=== PATIENT | female | born 1990 | race Caucasian/White ===

== ENCOUNTER 2016-05-09 09:14 | Emergency (ER) ==
[2016-05-09 09:26] VITALS: BP 139/92; TEMP 98.5; BMI 35.0
--- NOTE | 2016-05-09 09:54 | ED.PDOC ---
General ED Provider: Dr. LOULOU BRAUN Chief Complaint: Toe Pain/Injury Stated Complaint: ingrown toe nail right foot Time Seen by Physician: 09:18 Mode of Arrival: Walk-In Information Source: Patient Exam Limitations: No limitations Primary Care Provider: AYDE GARAY Nursing and Triage Documentation Reviewed and Agree: Yes Musculoskeletal Complaint Exam - Ankle/Foot Complaint/Exam Location of Injury: Reports: Right, Toe #1 Mechanism of Injury: Reports: Other (in grown toe nail1 monthago she did not keep wound clean kept dressing onx2 weeks) Onset/Duration: 30 days Symptoms Are: Reports: Still present Initial Severity: Moderate Current Severity: Moderate Character: Reports: Dull, Aching Alleviating: Reports: Rest Aggravating: Reports: Movement Able to Bear Weight: Yes Associated Signs and Symptoms: Reports: Redness (see photos) Review of Systems - Review Of Systems Constitutional: Reports: No symptoms Eyes: Reports: No symptoms Ears, Nose, Mouth, Throat: Reports: No symptoms Respiratory: Reports: No symptoms Cardiac: Reports: No symptoms GI: Reports: No symptoms : Reports: No symptoms Musculoskeletal: Reports: Other (1st toe pain) Skin: Reports: No symptoms Neurological: Reports: No symptoms Endocrine: Reports: No symptoms Hematologic/Lymphatic: Reports: No symptoms All Other Systems: Reviewed and Negative Past Medical History - Past Medical History Endocrine: Reports: None Cardiovascular: Reports: None Respiratory: Reports: None Hematological: Reports: None Gastrointestinal: Reports: None Genitourinary: Reports: None Neuro/Psych: Reports: None Musculoskeletal: Reports: Back Pain Cancer: Reports: None Last Menstrual Period: 1 week Other Pertinent Past Medical History: Dental pain, hiatal hernia - Surgical History General Surgical History: Reports: Other (dental) - Family History Family History: Reports: Unknown - Social History Smoking Status: Current every day smoker, Light tobacco smoker Hx Substance Use: No Alcohol Screening: None Physical Exam - Physical Exam Appearance: Well-appearing, No pain distress, Well-nourished Eyes: SHALONDA, EOMI, Conjunctiva clear ENT: Ears normal, Nose normal, Oropharynx normal Respiratory: Airway patent, Breath sounds clear, Breath sounds equal, Respirations nonlabored Cardiovascular: RRR, Pulses normal, No rub, No murmur GI/: Soft, Nontender, No masses, Bowel sounds normal, No Organomegaly Musculoskeletal: Limited ROM (right 1st toe red inflammed and scaly see photo) Skin: Warm, Dry, Normal color Neurological: Sensation intact, Motor intact, Reflexes intact, Cranial nerves intact, Alert, Oriented Psychiatric: Affect appropriate, Mood appropriate Critical Care Note - Critical Care Note Total Time (mins): 0 Course - Course Vital Signs: Temp Pulse Resp BP Pulse Ox 05/09/16 09:16 98.5 F 82 20 139/92 H 95 Departure - Departure Time of Disposition: 09:54 Disposition: HOME SELF-CARE Discharge Problem: Pain in toe Instructions: Ingrown Nail (ED), Paronychia (ED) Condition: Good Pt referred to PMD for follow-up: No Allergies/Adverse Reactions: Allergies ketorolac tromethamine [From Toradol] Adverse Reaction (Verified 05/09/16 09:26) Penicillins Adverse Reaction (Verified 05/09/16 09:26) tramadol Adverse Reaction (Verified 05/09/16 09:26) Home Medications: Ambulatory Orders Alprazolam [Xanax] 1 mg PO QID 05/09/16 Ranitidine HCl [Acid Meat Cutter Apprentice] 150 mg PO DAILY 05/09/16
== END 2016-05-09 10:08 | disposition home or self-care (01) ==
LOC: ED 09:14
DX: L60.0 Ingrowing nail (principal); L03.031 Cellulitis of right toe; M79.674 Pain in right toe(s); F17.210 Nicotine dependence, cigarettes, uncomplicated
CPT/HCPCS: 99282

== ENCOUNTER 2016-09-26 22:49 | Emergency (ER) ==
[2016-09-26 22:53] VITALS: BP 138/91; TEMP 98.6; BMI 34.6
--- NOTE | 2016-09-27 00:06 | ED.PDOC ---
General ED Provider: Dr. DONTAE CARRILLO-ER Chief Complaint: Extremity Pain/Injury Stated Complaint: a door hit my elbow 2 nights ago and it still hurts Time Seen by Physician: 22:50 Mode of Arrival: Walk-In Information Source: Patient Exam Limitations: No limitations Primary Care Provider: AYDE GARAY Nursing and Triage Documentation Reviewed and Agree: Yes Musculoskeletal Complaint Exam - Elbow Pain Complaint/Exam Mechanism of Injury: Reports: Trauma Onset/Duration: 2 days Symptoms Are: Still present Onset of Pain: Reports: Immediate Initial Severity: Mild Current Severity: Moderate Location: Reports: Discrete (right elbow) Character: Reports: Dull, Aching Alleviating: Reports: None Aggravating: Reports: Movement, Twisting, Pulling Associated Signs and Symptoms: Reports: Swelling, Bruising. Denies: Redness, Fever, Weakness, Numbness, Tingling Related History: Reports: Similar episode Related Surgical History: Reports: None Elbow Findings: Present: Swelling, Ecchymosis Tenderness: Present: Medial Condyle Limited Range of Motion: Present: Flexion, Extension, Pronation, Supination Differential Diagnoses: Closed Fracture, Sprain, Strain Review of Systems - Review Of Systems Constitutional: Reports: No symptoms Eyes: Reports: No symptoms Ears, Nose, Mouth, Throat: Reports: No symptoms Respiratory: Reports: No symptoms Cardiac: Reports: No symptoms GI: Reports: No symptoms : Reports: No symptoms Musculoskeletal: Reports: Muscle pain Skin: Reports: No symptoms Neurological: Reports: No symptoms Endocrine: Reports: No symptoms Hematologic/Lymphatic: Reports: No symptoms All Other Systems: Reviewed and Negative Past Medical History - Past Medical History Previously Healthy: Yes Endocrine: Reports: None Cardiovascular: Reports: None Respiratory: Reports: None Hematological: Reports: None Gastrointestinal: Reports: None Genitourinary: Reports: None Neuro/Psych: Reports: None Musculoskeletal: Reports: Back Pain Cancer: Reports: None Last Menstrual Period: 09/15/16 Other Pertinent Past Medical History: Dental pain, hiatal hernia - Surgical History General Surgical History: Reports: Other (dental) - Family History Family History: Reports: Unknown - Social History Smoking Status: Current every day smoker, Light tobacco smoker Hx Substance Use: No Alcohol Screening: None Lives: With family - Immunizations Tetanus Shot up to Date: Yes Physical Exam - Physical Exam Appearance: Well-appearing, No pain distress, Well-nourished Pain Distress: Moderate Eyes: SHALONDA, EOMI, Conjunctiva clear ENT: Ears normal, Nose normal, Oropharynx normal Neck: Supple Respiratory: Airway patent, Breath sounds clear, Breath sounds equal, Respirations nonlabored Cardiovascular: RRR, Pulses normal, No rub, No murmur GI/: Soft, Nontender, No masses, Bowel sounds normal, No Organomegaly Musculoskeletal: Limited ROM Skin: Warm, Dry, Normal color Neurological: Sensation intact, Motor intact, Reflexes intact, Cranial nerves intact, Alert, Oriented Psychiatric: Affect appropriate, Mood appropriate Interpretation - Radiology Interpretation Radiology Interpretation By: Radiologist Radiology Results: Negative Critical Care Note - Critical Care Note Total Time (mins): 0 Course - Course Orders, Labs, Meds: Orders Category Date Time Status Splint [ED SPLINT APPLICATION] .ONCE EMERGENCY 09/27/16 00:10 Active Hydrocodone Bit/Acetaminophen [Urania 7.5-325] MEDS 09/27/16 00:06 Discontinued 1 tab PO ONCE STA ELBOW, RIGHT MIN 3 VIEWS Stat RADS 09/26/16 23:39 Completed FOREARM, RIGHT 2 VIEWS Stat RADS 09/26/16 23:39 Completed Medications Discontinued Medications Generic Name Dose Route Start Last Admin Trade Name Freq PRN Reason Stop Dose Admin Acetaminophen/Hydrocodone Bitart 1 tab 09/27/16 00:06 Urania 7.5-325 PO 09/27/16 00:07 ONCE STA Vital Signs: Temp Pulse Resp BP Pulse Ox 09/26/16 22:49 98.6 F 96 H 20 138/91 H 96 Departure - Departure Time of Disposition: 00:11 Disposition: HOME SELF-CARE Discharge Problem: Contusion, elbow Qualifiers: Encounter type: initial encounter Laterality: right Qualifier Code: (S50.01XA) Contusion of right elbow, initial encounter Instructions: Contusion in Adults (ED) Condition: Good Pt referred to PMD for follow-up: Yes Additional Instructions: stay in sling--norco 7.5mg q 4hrs prn #10--f/u with pcp next week--consider mri of the elbow Allergies/Adverse Reactions: Allergies ketorolac tromethamine [From Toradol] Adverse Reaction (Verified 05/09/16 09:26) Penicillins Adverse Reaction (Verified 05/09/16 09:26) tramadol Adverse Reaction (Verified 05/09/16 09:26) Home Medications: Ambulatory Orders Alprazolam [Xanax] 1 mg PO QID 05/09/16 Ranitidine HCl [Acid Boardmarker] 150 mg PO DAILY 05/09/16 Disposition Discussed With: Patient
--- NOTE | 2016-09-27 00:06 | DI ---
EXAM: Right forearm, two views, 09/26/2016 HISTORY: Trauma COMPARISON: 09/26/2016 FINDINGS / IMPRESSION: Normal anatomic alignment is maintained. There is no evidence of fracture o r dislocation. No acute osseous abnormality.
--- NOTE | 2016-09-27 00:09 | DI ---
EXAM: Right elbow, three views, 09/26/2016 HISTORY: Trauma COMPARISON: None. FINDINGS / IMPRESSION: Normal anatomic alignment is maintained. There is evidence of fracture or d islocation No acute osseous abnormality of the right elbow.
[2016-09-27] MEDS: NORCO 7.5-325 PO STA (00:22)
== END 2016-09-27 00:48 | disposition home or self-care (01) ==
LOC: ED 22:49
DX: S50.01XA Contusion of right elbow, initial encounter (principal); W22.8XXA Striking against or struck by other objects, initial encounter
CPT/HCPCS: 99283